=== PATIENT | male | born 1935 | race Caucasian/White ===

== ENCOUNTER 2019-01-20 16:32 | Emergency (ER) | payer MEDICARE, BC ==
[~2019-01-20] VITALS: Ht 177.8 cm; Wt 88.6 kg
[~2019-01-20 16:32] MED LIST: ACTONEL PO; ACTONEL5 MG PO; ADULT ASA81 MG OR; ANTIVERT OR; ASPIRIN LOW DOS81 M2 PO; AVODART0.5 MG PO; BACTRIM DS1 TAB OR; CIPRO500 MG OR; FLUARIX QUADRIV1 IN1 IM; FLUARIX QUADRIV1 INJ IM; FLUZONE SPLT1 M1 IM; INDOCIN50 MG/CAP PO; LEVOTHYROXIN50 MCG PO; LIPITOR80 MG PO; METO50TA52 PO; MILK OF MAG30 ML/UDC PO; NASONEX50 MCG/AC; NEXIUM40 MG PO; PLAVIX75 MG OR; PLAVIX75 MG PO; PROTONIX40 MG PO; SENOKOT8.6 MG PO; SYNTHROID25 MCG PO; TOPROL XL100 MG OR; UROXATRAL10 MG PO; VASOTEC5 MG PO; XANAX0.25 MG PO; ZETIA10 MG PO; ZOLPIDEM5 MG PO
[2019-01-20 17:56] LABS: HEMATOCRIT 36.7 % (39.0-50.0); HEMOGLOBIN 11.8 g/dl (14.0-18.0); IMMATURE GRANULOCYTES 0.6 % (0.0-5.0); MEAN CELL VOLUME 90.4 fL CALC (80.0-100.0); MEAN CORPUSCULAR HGB 29.1 pG CALC (26.0-32.0); MEAN CORPUSCULAR HGB CONC 32.2 g/L CALC (32.0-36.0); NEUT# 10.95 thou/uL (1.82-7.42); RED BLOOD COUNT 4.06 mill/uL (4.70-6.10); RED CELL DISTRI WIDTH 14.9 % (11.5-15.5)
[2019-01-20] MEDS ORDERED: ELIQUIS2.5 MG ×2 (18:04→18:05)
[2019-01-20 18:12] VITALS: BP 154/85
[2019-01-20 18:15] LABS: ALBUMIN 4.4 g/dL (3.2-5.0); ALKALINE PHOSPHATASE 83 u/l (38-126); ANION GAP 17 (6-22 (CALC)); BILIRUBIN, TOTAL 1.2 mg/dL (0.0-1.4); BUN 21 mg/dL (8-23); BUN/CREATININE RATIO 27 (12-20 (CALC)); CARBON DIOXIDE 25 mmol/l (22-30); CHLORIDE 99 mmol/l (95-108); CREATININE 0.8 mg/dL (0.7-1.3); GFR > 60 ML/MIN (>=60 (CALC)); GFR FOR AFR.AMER. > 60 ML/MIN (>=60 (CALC)); INTERNATIONAL NORMALIZED RATIO 1.1 RATIO (0.7-1.3); POTASSIUM 4.6 mmol/l (3.5-5.1); SGOT/AST 30 u/l (19-48); SODIUM 137 mmol/l (137-146); TOTAL PROTEIN 7.4 g/dL (6.3-8.2)
[2019-01-28] MEDS ORDERED: LUMIGAN0.01 % OU (15:10)
[2019-01-28] MEDS ORDERED: SEROQUEL100 MG PO (15:11)
[2019-03-01] MEDS ORDERED: TAMSULOSIN0.4 MG PO (14:55)
[2019-03-01] MEDS ORDERED: RISEDRONATE SO150 MG PO (14:55)
[2019-03-01] MEDS ORDERED: XANAX0.5 MG PO (14:58)
== END 2019-01-20 18:15 | disposition short-term general hospital (02) ==
LOC: ED 16:32
PROVIDERS: Emergency Medicine
DX: S06.340A Traumatic hemorrhage of right cerebrum without loss of consciousness, initial encounter (principal); S80.02XA Contusion of left knee, initial encounter; S80.01XA Contusion of right knee, initial encounter; I10 Essential (primary) hypertension; I25.10 Atherosclerotic heart disease of native coronary artery without angina pectoris; W18.30XA Fall on same level, unspecified, initial encounter; Y92.009 Unspecified place in unspecified non-institutional (private) residence as the place of occurrence of the external cause

== ENCOUNTER 2019-01-28 13:58 | Inpatient (IN) | payer MEDICARE, BC ==
[~2019-01-28] VITALS: Ht 30.5 cm; Wt 100.0 kg
[2019-01-28] VITALS (8 sets, daily range): BP systolic 114–179; BP diastolic 69–103
[~2019-01-28 13:58] MED LIST changes: +ELIQUIS2.5 MG
--- NOTE | 2019-01-28 14:09 | NUR ---
PT TO ROOM VIA EMS PT SENT TO ER FOR HTN FROM [facility]. PT IS AOX2 PER NORMAL MENTATION FROM . PT WAS RELEASED FROM [facility] 01/27/19 TO REHAB. PT DENIES ANY C/P, SOB, N/V.
--- NOTE | 2019-01-28 14:20 | NUR ---
SPLINT REMOVED FROM LEFT LEG, BRUSING NOTED OVER TIB/FIB, STATES INJURY WAS FROM A FALL.
[2019-01-28 14:30] LABS: HEMATOCRIT 37.5 % (39.0-50.0); HEMOGLOBIN 12.2 g/dl (14.0-18.0); IMMATURE GRANULOCYTES 0.9 % (0.0-5.0); MEAN CELL VOLUME 88.7 fL CALC (80.0-100.0); MEAN CORPUSCULAR HGB 28.8 pG CALC (26.0-32.0); MEAN CORPUSCULAR HGB CONC 32.5 g/L CALC (32.0-36.0); NEUT# 12.49 thou/uL (1.82-7.42); RED BLOOD COUNT 4.23 mill/uL (4.70-6.10); RED CELL DISTRI WIDTH 15.3 % (11.5-15.5)
[2019-01-28 14:31] LABS: URINE BILIRUBIN - DIPSTICK NEGATIVE (NEGATIVE); URINE BLOOD DIPSTICK LARGE (NEGATIVE); URINE COLOR YELLOW; URINE GLUCOSE - DIPSTICK 500 mg/dL (NEGATIVE); URINE KETONE 15 mg/dL (NEGATIVE); URINE LEUK ESTERASE NEGATIVE (NEGATIVE); URINE NITRITE - DIPSTICK NEGATIVE (Negative); URINE PH 5.5 (4.5-8.0); URINE PROTEIN - DIPSTICK 100 mg/dL (NEG-TRACE); URINE SPECIFIC GRAVITY >=1.030
[2019-01-28 14:38] LABS: URINE RBC 25-50 RBC/hpf (0-5); URINE SQUAMOUS EPITHELIAL CELL FEW EPI/hpf (0-FEW)
[2019-01-28 14:43] LABS: ANION GAP 16 (6-22 (CALC)); BUN 17 mg/dL (8-23); BUN/CREATININE RATIO 24 (12-20 (CALC)); CARBON DIOXIDE 27 mmol/l (22-30); CHLORIDE 90 mmol/l (95-108); CREATININE 0.7 mg/dL (0.7-1.3); GFR > 60 ML/MIN (>=60 (CALC)); GFR FOR AFR.AMER. > 60 ML/MIN (>=60 (CALC)); POTASSIUM 3.8 mmol/l (3.5-5.1)
[2019-01-28 14:44] LABS: SODIUM 129 mmol/l (137-146)
[2019-01-28] MEDS ORDERED: ALFUZOSIN HCL E10 MG PO (15:08)
[2019-01-28] MEDS ORDERED: ASPIRIN 81 LOW81 MG (15:08)
[2019-01-28] MEDS ORDERED: LEVOTHYROXIN25 MC1 PO (15:09)
[2019-01-28] MEDS ORDERED: AVODART0.5 MG PO (15:09)
[2019-01-28] MEDS ORDERED: ATORVASTATIN CA80 MG PO (15:09)
[2019-01-28] MEDS ORDERED: PROTONIX40 M2 PO (15:10)
[2019-01-28] MEDS ORDERED: LUMIGAN0.01 % OP (15:10)
[2019-01-28] MEDS ORDERED: SEROQUEL25 MG (15:11)
[2019-01-28] MEDS ORDERED: ZETIA10 MG PO (15:11)
[2019-01-28] MEDS ORDERED: VASOTEC5 MG PO (15:11)
[2019-01-28] MEDS ORDERED: ELIQUIS2.5 MG (15:12)
[2019-01-28] MEDS ORDERED: METOPROL TAR100 MG PO (15:13)
--- NOTE | 2019-01-28 15:20 | NUR ---
PT RESTING ON STRETCHER, IV'S PATENT WITGH MEDICATIONS RUNNING. AT BEDSIDE.
--- NOTE | 2019-01-28 15:57 | NUR ---
REPORT CALLED TO ICU- MORGAN NEVILLE ACCEPTED PT
--- NOTE | 2019-01-28 16:20 | NUR ---
PT ARRIVED VIA STRETCHER ACCOMAPNIED BY STAFF AT 1620 WITH IV SITES INTACT, GUTIERREZ AND O2 @2 LITERS WITH NC. CONTINUE TO OBSERVE AND MONITOR.
--- NOTE | 2019-01-28 16:20 | NUR ---
received from ER; cardizem gtt infusing at 20mg/hr to lac site; dose continued;
--- NOTE | 2019-01-28 16:20 | NUR ---
Admission Note Report Given to: MORGAN KELIN Transported by: Wheelchair X Stretcher Transported with: X Nurse Transporter X Patent IV O2 X Luggage Repairer TRANSPORTED TO ICU 5 WITHOUT INCIDENT
--- NOTE | 2019-01-28 16:40 | NUR ---
ASSESSMENT IS COMPLETED: IV SITE IS FREE FROM REDNESS OR EDEMA. HR IS IRREGULAR, BREATH SOUNDS ARE CLEAR,BILATERALLY., GUTIERREZ INTACT DRAINING YELLOW URINE,. PULSES ARE STRONG X4, ABD IS SOFT WITH ACTIVE BS. DRESSING ON LEFT FOOT IS COVERED WITH CELENA WRAP. CONTINUE TO OSBERVE AND MONITOR.
--- NOTE | 2019-01-28 16:41 | NUR ---
call received from Dr Jonas NICHOLSON informed per publicity writer pt is Afib rate 124, bp 154/103, cardizem gtt at 20mg/hr; orders to be placed
--- NOTE | 2019-01-28 19:50 | NUR ---
PATIENT ALERT AND ORIENTED WITH GOOD BREATHING PATTERN, STABLE VITAL SINGS AT THE MOMENT OF THIS NOTE.HEART RATE A. FIB, LUNGS CLEARS. SKIN IS INTACT, BRUSING IN THE LEFT AND RIGHT HIP. CONFORT IS PROVIDED. CHANGE OF POSITION TO PREVENTAREAS OF PRESSURE.
[2019-01-29] VITALS (19 sets, daily range): BP systolic 101–153; BP diastolic 55–98
--- NOTE | 2019-01-29 07:20 | NUR ---
ASSESSMENT IS COMPLETED: IV SITE IN RAC IS CDI. GUTIERREZ INTACT DRAINING YELLOW URINE. HR IS IRREGULAR, BREATH SOUNDS ARE CLEAR,BILATERALLY, NO C/O SOB, ABD IS SOFT WITH ACTIVE BS. CALL MASON WITHIN REACH. REDIRECTABLE. CONTINUE TO OBSERVE AND MONITOR.
--- NOTE | 2019-01-29 07:28 | NUR ---
Vancomycin consult Age: 83 yo Serum creatinine: 1 mg/dL Height: 70.0 Inches Weight (kg): 99.98 IBW (kg): 73.00 Dosing wt(kg): 99.98 Estimated Creatinine clearance (ml/min): 56.8 CRCL method: Cockcroft and Gault using ibw(default). Vd (liters): 70.0 (factor used: 0.7 L/kg) Arturo (hr-1): 0.052 Half life (hrs): 13.33 Vancomycin 1000 mg q 12 hrs with an expected Cpeak of 29 mcg/ml and an expected Ctrough of 17 mcg/ml
--- NOTE | 2019-01-29 07:45 | NUR ---
IV SITE PLACED IN LH WITH 1 ATTEMPT BY Lyn GUPTA RN. PT TOLERATED WELL. COVERED WITH COBAN TO KEEP PT FROM PULLING OUT. CONTINUE TO OSBERVE AND MONITOR.
--- NOTE | 2019-01-29 08:43 | NUR ---
SPOUSE IN THE ROOM. IS CONFUSED AT TIMES. TALKING ABOUT GETTING DRESSED AND GOING HOME/ ALSO ABOUT TRUMP ON TV.
[2019-01-29 09:13] LABS: HEMATOCRIT 35.6 % (39.0-50.0); HEMOGLOBIN 11.5 g/dl (14.0-18.0); IMMATURE GRANULOCYTES 1.1 % (0.0-5.0); MEAN CORPUSCULAR HGB 28.8 pG CALC (26.0-32.0); MEAN CORPUSCULAR HGB CONC 32.3 g/L CALC (32.0-36.0); NEUT# 10.57 thou/uL (1.82-7.42); RED CELL DISTRI WIDTH 15.4 % (11.5-15.5)
[2019-01-29 09:25] LABS: ANION GAP 17 (6-22 (CALC)); BUN 13 mg/dL (8-23); BUN/CREATININE RATIO 23 (12-20 (CALC)); CARBON DIOXIDE 21 mmol/l (22-30); CHLORIDE 96 mmol/l (95-108); CREATININE 0.6 mg/dL (0.7-1.3); GFR > 60 ML/MIN (>=60 (CALC)); GFR FOR AFR.AMER. > 60 ML/MIN (>=60 (CALC)); MAGNESIUM 1.8 mg/dL (1.6-2.3); POTASSIUM 3.7 mmol/l (3.5-5.1); SODIUM 130 mmol/l (137-146)
--- NOTE | 2019-01-29 11:23 | NUR ---
PT IS RELAXING AND VISITING WITH FAMILY. ATTEMPTS TO GET OUT OF BED REDIRECTABLE WITH STAFF. CONTINUE TO OSEBRVE AND MONITOR
--- NOTE | 2019-01-29 12:30 | NUR ---
RAC IV STARTED TO LEAK ON PT AND BED. REMOVED. COMPLETED THE VANCO IN OTHER IV SITE . IV SITE IN IS CDI. FAMILY IN THE ROOM. CONTINUE TO OBSERVE AND MONITOR.
--- NOTE | 2019-01-29 12:47 | NUR ---
EKG COMPLETED AT BEDSIDE, DR. ROMERO IN THE UNIT.
--- NOTE | 2019-01-29 12:56 | NUR ---
WRIST RESTRAINT ORDERS PLACED DUE TO PT PULLING IVS, AND GUTIERREZ CATHETER, ALSO CARDIAC MONITORING , BP CUFF. AND ALL CLOTHING. REDIRECTABLE, BUT FOR SAFETY.CONTINUE TO OSBERVE AND MONITOR.
--- NOTE | 2019-01-29 15:29 | NUR ---
FAMILY MEMBER INQUIRED ABOUT A CT SCAN OF THE HEAD. CALLED VIKRAM TIPTON. WANTS TO WAIT UNTIL WE GET RECORDS FROM [facility]. THEN WILL DECIDE.
--- NOTE | 2019-01-29 16:30 | NUR ---
SPOKE WITH SPOUSE AT 1615 INQUIRED HOW HE IS , EXPLAINED HE IS RESTIGN A LITTLE BIT. VERBALIZED UNDERSTANDING.
--- NOTE | 2019-01-29 17:12 | NUR ---
PT HAS TAKEN ONE MITTEN OFF OF THE R HAND WILL CONTINUE TO OBSERVE AND MONITOR.
--- NOTE | 2019-01-29 18:19 | NUR ---
PT PASSED A LARGE CLOT THROUGH HIS GUTIERREZ. OTHERWISE CLEAR URINE.
--- NOTE | 2019-01-29 18:43 | NUR ---
GAVE REPORT TO AGENCY NURSE. IV SITE IS FREE FROM REDNESS OR EDEMA. GUTIERREZ INTACT. CONTINUE TO OBSERVE AND MONITOR.
--- NOTE | 2019-01-29 20:05 | NUR ---
PATIENT ALERT AND CONFUSE IN TIME AND PLACE. GOOD BREATHING PATTERN, HEART RATE A. FIB AT THIS TIME. GASTROINTESTINAL MOVEMENT PRESENT. SKIN IS INTACT. THE COMFORT OF EDUCATION IS PROVIDE.
[2019-01-30] VITALS (30 sets, daily range): BP systolic 118–199; BP diastolic 74–109
[2019-01-30 05:09] LABS: HEMOGLOBIN 11.4 g/dl (14.0-18.0); MEAN CELL VOLUME 89.5 fL CALC (80.0-100.0); MEAN CORPUSCULAR HGB 29.2 pG CALC (26.0-32.0); MEAN CORPUSCULAR HGB CONC 32.6 g/L CALC (32.0-36.0); NEUT# 9.56 thou/uL (1.82-7.42); RED BLOOD COUNT 3.91 mill/uL (4.70-6.10); RED CELL DISTRI WIDTH 15.5 % (11.5-15.5)
[2019-01-30 05:34] LABS: BUN 9 mg/dL (8-23); BUN/CREATININE RATIO 15 (12-20 (CALC)); CHLORIDE 103 mmol/l (95-108); CREATININE 0.6 mg/dL (0.7-1.3); GFR > 60 ML/MIN (>=60 (CALC)); GFR FOR AFR.AMER. > 60 ML/MIN (>=60 (CALC)); POTASSIUM 3.3 mmol/l (3.5-5.1)
[2019-01-30 05:38] LABS: ANION GAP 10 (6-22 (CALC))
[2019-01-30 05:39] LABS: CARBON DIOXIDE 29 mmol/l (22-30); SODIUM 139 mmol/l (137-146)
--- NOTE | 2019-01-30 07:35 | NUR ---
ASSESSMENT IS COMPLTED: IV SITE IS FREE FROM REDNESS OR EDEMA. HR IS IRREGULAR, PULSES ARE STRONG X4, ABD IS SOFT WITH ACTIVE BS. HAD A BM THIS AM. BREATH SOUNDS ARE CLEAR, BILATERALLY,. O2 @ 2LITERS WITH NC. GUTIERREZ INTACT DRAINING BLOODY URINE. DRESSING ON LEFT ANKLE IS CDI. BRUISING NOTED ON FOOT. CONTINUE TO OSBERVE AND MONITOR.
--- NOTE | 2019-01-30 09:06 | NUR ---
gave an update to evette dykes at &r. pt is up in the chair with 2 person assist unable to bear weight on left foot.
--- NOTE | 2019-01-30 10:00 | NUR ---
PT IS SITTING IN THE CHAIR, CONTINUES TO FEEL LIKE HE HAS TO VOID, REDIRECTABLE RE: MATT
--- NOTE | 2019-01-30 10:37 | NUR ---
Vancomycin consult Current dose being given: 1000 mg Current dosing interval: 12 hrs Current infusion time (hrs): 2 Trough level obtained: 8 mcg/ml Timing of trough - # of hrs before next dose: 0.5 Hrs Estimated PK Parameters: New rate constant (zunilda): 0.089 hr-1 Half-life: 7.79 Hours Vd from levels: 70.00 Liters (0.7 L/kg) Vancomycin 1000 mg q 8 hrs. Infuse over 2 hrs Expected Cpeak: 26 mcg/mL Expected Ctrough: 15 mcg/mL
--- NOTE | 2019-01-30 11:51 | NUR ---
DR. LOPEZ , PHYSICAL THERAPY HERE TO SEE THE PT. HE IS SITTING IN THE CHAIR FAMILY IN THE ROOM.
--- NOTE | 2019-01-30 13:00 | NUR ---
EZRA RAMIRES CAME OFF FOR LUNCH, HAS NOT PLACED BACK ON. RELAXING AT THIS TIME. CONTINUE TO OSBERVE AND MONITOR.
--- NOTE | 2019-01-30 14:40 | NUR ---
PT PLACED ON STRETCHER FOR A CT OF THE THORAX. IV SITE INTACT WITH FLUIDS. ALS CARDIZEM DRIP. GUTIERREZ INTACT. CONTINUE TO OBSERVE AND MONITOR.
--- NOTE | 2019-01-30 15:15 | NUR ---
PT RETURNED FROM HAVING CT COMPLETED; PT IS LAYING ON HIS R SIDE. VERY COMFORTABLE. IV SITE IS FREE FROM REDNESS OR EDEMA. GUTIERREZ INTACT. CONTINUE TO OSBERVE AND MONITOR.
--- NOTE | 2019-01-30 16:00 | NUR ---
PT IS RESTING IN BED WITH NO DISTRESS NOTED. IV SITE IS FREE FROM REDNESS OR EDEMA. GUTIERREZ INTACT. CONTINUE TO OBSERVE AND MONITOR.
--- NOTE | 2019-01-30 16:41 | NUR ---
RECEIVED A CALL FROM DR.ALTAJAR SIMONA BERG AND YANA.
--- NOTE | 2019-01-30 18:50 | NUR ---
REPORT FROM Morgan PATRICK LPN. ASSUMED PT. CARE.
--- NOTE | 2019-01-30 19:30 | NUR ---
PT. FOUND RESTING ON LT. SIDE IN NO DISTRESS. SPO2 IS SLIGHTLY LOW AT 91% ON 2L VIA NC. CARDIZEM DRIP INFUSING AT 20 MG/HR AT THIS TIME. HR REMAINS A-FIB IN THE 100-160'S. BP STABLE AT 164/82. AFEBRILE AT 99.9 AT THIS TIME.
--- NOTE | 2019-01-30 20:46 | NUR ---
PT. BRENDA NOW 197. WILL MEDICATE ORDERED.
--- NOTE | 2019-01-30 21:05 | NUR ---
PT. HIGHLY RESTLESS. ORIENTED X 0 AT THIS TIME. PT. ASKED HIS NAME AND ONLY STATES, "I DON'T KNOW". NOT FOLLOWING COMMANDS. PULLING AT LINES AND TUBE. REORIENTATION PROVIDED, BUT UNSUCCESSFUL AT THIS TIME.
--- NOTE | 2019-01-30 21:55 | NUR ---
MD MADE AWARE OF PATIENT BEHAVIOR AT THIS TIME. REMAINS ORIENTED X 0. AGAIN ATTEMPTS TO REORIENT UNSUCCESSFUL.
--- NOTE | 2019-01-30 22:00 | NUR ---
PT. PLACED IN SOFT BILAT WRIST RESTRAINTS AT THIS TIME. CONTINUES TO ATTEMPT TO PULL AT LINES AND TUBES DESPIDE MULTIPLE ATTEMPTS TO REORIENTED AND CALM PATIENT.
--- NOTE | 2019-01-30 22:01 | NUR ---
THIS RN AND KESHIA KHALIL, CHANGED PT. GOWN AND PROVIDED PERICARE. DRIED STOOL NOTED TO PATIENT AND GOWN. LINENS CHANGED AT THIS TIME WELL. PT. REMAINS UNCOOPERATIVE WITH CARE.
--- NOTE | 2019-01-30 22:49 | NUR ---
RT AT BEDSIDE. PT. PLACED ON VENTI-MASK PT. IS MOUTH BREATHING AND SPO2 IS 84% ON 3L NC. WILL CONTINUE TO CLOSELY MONITOR.
--- NOTE | 2019-01-30 23:48 | NUR ---
PT. REMAINS RESTRAINED. SLIGHT IMPROVEMENT IN AGGITATION AT THIS TIME. PT. NOW ON 50% VENTI-MASK AT THIS TIME AND SPO2 IS 91%. HR HAS IMPROVED AND REMAINS IN A-FIB WITH RATE IN THE 80-100'S ON 20 MG/HR CARDIZEM DRIP. IV FLUIDS REMAIN AT KVO. NO REACTIONS NOTED TO INFUSING ZOSYN.
[2019-01-31] VITALS (47 sets, daily range): BP systolic 111–182; BP diastolic 71–112
--- NOTE | 2019-01-31 00:18 | NUR ---
IV ABX INFUSED. NO REACTIONS NOTED. IV LINE REMAINS PATENT. FLUSHED.
--- NOTE | 2019-01-31 01:23 | NUR ---
PT. SLEEPING AT THIS TIME, BUT REMAINS RESTLESS. TACHYPENIC, CONTINUES ON CARDIZEM DRIP AT 20 MG/HR. HR IN THE 90-110'S IN A-FIB. WILL CONTINUE TO MONITOR.
--- NOTE | 2019-01-31 02:34 | NUR ---
VANCO INFUSING WITHOUT SIGNS OF INFILTRATION OR REACTIONS. REMAINS RESTRAINED AT THIS TIME PT. REMAINS INTERMITTENTLY AGGITATED. REMAINS ORIENTED X 0.
--- NOTE | 2019-01-31 04:20 | NUR ---
VANCO COMPLETE AT THIS TIME. NO REACTIONS NOTED. PT. REMAINS ORIENTED X 0. PT. REMAINS A-FIB WITH RATE IN THE 80-110'S. CARDIZEM DRIP CONTINUES AT 20 MG/HR. RESTRAINTS REMAIN IN PLACE PT. CONTINUES TO ATTEMPT TO PULL AT LINES/TUBES. CALL LIGHT REMAINS WITHIN REACH. WILL CONTINUE TO MONITOR.
[2019-01-31 05:39] LABS: HEMOGLOBIN 11.1 g/dl (14.0-18.0); IMMATURE GRANULOCYTES 1.2 % (0.0-5.0); MEAN CELL VOLUME 91.6 fL CALC (80.0-100.0); MEAN CORPUSCULAR HGB 29.1 pG CALC (26.0-32.0); MEAN CORPUSCULAR HGB CONC 31.7 g/L CALC (32.0-36.0); NEUT# 15.93 thou/uL (1.82-7.42); RED BLOOD COUNT 3.82 mill/uL (4.70-6.10); RED CELL DISTRI WIDTH 15.9 % (11.5-15.5)
[2019-01-31 05:42] LABS: ALKALINE PHOSPHATASE 80 u/l (38-126); AMYLASE 36 u/l (30-110); BILIRUBIN, TOTAL 1.1 mg/dL (0.0-1.4); BUN 17 mg/dL (8-23); BUN/CREATININE RATIO 27 (12-20 (CALC)); CARBON DIOXIDE 25 mmol/l (22-30); CHLORIDE 103 mmol/l (95-108); CREATININE 0.6 mg/dL (0.7-1.3); GFR > 60 ML/MIN (>=60 (CALC)); GFR FOR AFR.AMER. > 60 ML/MIN (>=60 (CALC)); LIPASE 74 u/l (23-300); MAGNESIUM 1.9 mg/dL (1.6-2.3); SGOT/AST 35 u/l (19-48); SODIUM 139 mmol/l (137-146); TOTAL PROTEIN 6.8 g/dL (6.3-8.2)
--- NOTE | 2019-01-31 05:45 | NUR ---
WHEN ATTEMPTING TO WAKE PATIENT UP, PT. FOUND TO BE OBTUNDED. UNABLE TO FOLLOW COMMANDS TO TAKE PILLS. MADE AWARE. NEW ORDERS RECEIVED FOR STAT ABG AND CT BRAIN. WILL COMPLETE KIN.
[2019-01-31 05:50] LABS: ALBUMIN 3.5 g/dL (3.2-5.0); ANION GAP 15 (6-22 (CALC)); POTASSIUM 4.2 mmol/l (3.5-5.1)
--- NOTE | 2019-01-31 07:34 | NUR ---
01/30/19 Attempted evaluation in PM . Patient had received ativan and was difficult to arouse. We will attempt again in AM
--- NOTE | 2019-01-31 07:40 | NUR ---
ASSESSMENT IS COMPLETED: IV SITE IS FREE FROM REDNESS OR EDEMA.HR IS IRREGULAR, BREATH SOUNDS ARE CLEAR AND CRACKLES. O2 ON A NONREBREATHER. PULSES ARE STRONG X4, DRESSING ON LEFT ANKLE IS CDI. GUTIERREZ INTACT. RESTRAINTS IN USE DUE TO PT PULLING ON CARDIAC, AND IV SITES. CONTINUE TO OSBERVE AND MONITOR.
--- NOTE | 2019-01-31 09:40 | NUR ---
DR LOPEZ CONTACTED RE: PTS BREATHING.
--- NOTE | 2019-01-31 09:45 | NUR ---
LEFT PHONE AT NURSES STATION TO CHARGE.
--- NOTE | 2019-01-31 10:00 | NUR ---
FAMILY IN THE ROOM/ DR. LOPEZ IN TO VISIT WITH PT AND FAMILY. INFORMED THAT HE NEEDS TO BE TRANSFERRED TO [facility] FOR FURTHER TESTING.
--- NOTE | 2019-01-31 10:48 | NUR ---
PER DR LOPEZ, [facility] WILL NOT HAVE A BED UNTIL MAYBE TOMORROW AM. DR DONALD CALLED UP FROM ER BY DR LOPEZ FOR INTUBATION. 20MG ETOMIDATE GIVEN AT 1047 BY JOHN. 100MG ROCORRONIUM GIVEN AT [address] LOPEZ. PT INTUBATED IWTH 7.[address] DONALD AT 1048; 21 @ LIP. PLACEMENT VERIFIED BY COLOR CHANGE & AUSCULATION AT 1049. 1056 18FR OG PLACED. 1102 RIJ 3X LUMEN PLACED BY DR DONALD. 1110 PORT CXR COMPLETED.
--- NOTE | 2019-01-31 11:06 | NUR ---
DR LOPEZ WORKING ON TRANSFER TO [facility]. DR REDMOND (RECHECKER) ACCEPTED PT AT 1106. DR LOPEZ WOULD LIKE PT TO FLY TO [facility] WHEN ROOM ASSIGNMENT GIVEN.
--- NOTE | 2019-01-31 11:36 | NUR ---
PROPOFOL FORM FOR VENTALATED PTS FAXED TO PHARMACY
--- NOTE | 2019-01-31 12:00 | NUR ---
PT IS RELAXING WITH VENTILATOR IN PLACE. IV SITE IS FREE FROM REDNESS OR EDEMA. CONTINUE TO OSBERVE AND MONITOR.
--- NOTE | 2019-01-31 12:40 | NUR ---
S: REMBERTO GARCIA P is a 83 M who presents with suspected healthcare associated pneumonia, metabolic encephalopathy, hypertension, and hyponatremia . He has a history of dementia, arthritis, CAD, hypertension, osteoporosis, and dyslipidemia. All medications in patient's chart were reviewed. O: VS: BP 139/72 mmHg, P 106bpm, RR 32, T 98.7 W 99.99 kg, HT 70 in, Scr= 0.6 ,CrCl= 65.17 ml/min A: Blood culture is pending P: Patient is on Zosyn 3.375gm IV Q6H and Vancomycin 1gm Q8H. Vancomycin ordered for pharmacy to dose. Continue Vancomycin 1gm IV Q8H. Vancomycin trough is drawn before the 4th dose on 02/01/19 @0930. Vancomycin goal trough is between 15-20 mcg/ml. Pharmacy will follow and or advise on antibiotics use as needed.
--- NOTE | 2019-01-31 13:00 | NUR ---
SON @BEDSIDE WITH PT. UPDATED ON STATUS.
--- NOTE | 2019-01-31 13:37 | NUR ---
PROPOFOL DRIP TITRATED UP TO 30 MCG/KG/MIN D/T PT MOVING ALL LIMBS & SCOOTING CLOSE TO SIDE OF BED.
--- NOTE | 2019-01-31 13:38 | NUR ---
RECVD REPORT FROM KELIN MORA
--- NOTE | 2019-01-31 13:40 | NUR ---
PT GOT BED 5D, BED 4. AEROMED ETA 21 MINS.
--- NOTE | 2019-01-31 13:42 | NUR ---
SPOKE WITH CHON PT'S RE: PT BEING FLOWN OUT IN APPROX 19 MINUTES. VERBALIZED UNDERSTANDING. VERY APPRECIATIVE OF THE CARE HE HAS RECIEVED.
--- NOTE | 2019-01-31 13:50 | NUR ---
FACESHEET FAXED TO [facility] AT [phone]
--- NOTE | 2019-01-31 14:00 | NUR ---
RT @BEDSIDE FOR ABG. PT STILL MOVING AROUND. PROPOFOL TITRATED TO 35 MCG/KG/MIN
--- NOTE | 2019-01-31 14:53 | NUR ---
PT OUT THE DOOR WITH AEROMED IN STABLE CONDITION ON TELE, VENT, & IV DRIPS.
--- NOTE | 2019-01-31 15:04 | NUR ---
report given to adam at [facility] icu. [phone]
== END 2019-01-31 14:53 | disposition short-term general hospital (02) | DRG 208 ==
LOC: ED 13:58 → ED-I 14:50 → ED 15:03 → ICU 15:04
PROVIDERS: Family Medicine; Internal Medicine Nephrology; Nurse Practitioner Family; ADMIT Internal Medicine; ATTEND Internal Medicine
PROC: 5A1935Z Respiratory Ventilation, Less than 24 Consecutive Hours (ICD-10-PCS; principal; 2019-01-31)
PROC: 0BH17EZ Insertion of Endotracheal Airway into Trachea, Via Natural or Artificial Opening (ICD-10-PCS; 2019-01-31)
PROC: 02HV33Z Insertion of Infusion Device into Superior Vena Cava, Percutaneous Approach (ICD-10-PCS; 2019-01-31)
DX: J18.9 Pneumonia, unspecified organism (principal); G93.41 Metabolic encephalopathy; J96.02 Acute respiratory failure with hypercapnia; J96.01 Acute respiratory failure with hypoxia; G93.6 Cerebral edema; E87.1 Hypo-osmolality and hyponatremia; I48.1 Persistent atrial fibrillation; I10 Essential (primary) hypertension; I16.0 Hypertensive urgency; I25.10 Atherosclerotic heart disease of native coronary artery without angina pectoris; E11.9 Type 2 diabetes mellitus without complications; F03.90 Unspecified dementia, unspecified severity, without behavioral disturbance, psychotic disturbance, mood disturbance, and anxiety; M19.90 Unspecified osteoarthritis, unspecified site; M81.0 Age-related osteoporosis without current pathological fracture; E78.5 Hyperlipidemia, unspecified; E87.6 Hypokalemia; E03.9 Hypothyroidism, unspecified; K21.9 Gastro-esophageal reflux disease without esophagitis; R33.9 Retention of urine, unspecified; I25.2 Old myocardial infarction; S82.832D Other fracture of upper and lower end of left fibula, subsequent encounter for closed fracture with routine healing; X58.XXXD Exposure to other specified factors, subsequent encounter; Y95 Nosocomial condition; Z79.82 Long term (current) use of aspirin; Z86.73 Personal history of transient ischemic attack (TIA), and cerebral infarction without residual deficits; Z79.01 Long term (current) use of anticoagulants; Z95.5 Presence of coronary angioplasty implant and graft; Z95.1 Presence of aortocoronary bypass graft
CPT/HCPCS: J2060

== ENCOUNTER 2019-03-08 11:13 | Day surgery (SDC) | payer MEDICARE, BC ==
[~2019-03-08 11:13] MED LIST changes: +ALFUZOSIN HCL E10 MG PO; +ASPIRIN 81 LOW81 MG; +ATORVASTATIN CA80 MG PO; +LEVOTHYROXIN25 MC1 PO; +LUMIGAN0.01 % OU; +METOPROL TAR100 MG PO; +PROTONIX40 M2 PO; +RISEDRONATE SO150 MG PO; +SEROQUEL100 MG PO; +TAMSULOSIN0.4 MG PO; +XANAX0.5 MG PO
[2019-03-08 15:40] VITALS: BP 131/101
== END 2019-03-08 15:30 ==
LOC: ORM 11:13
PROVIDERS: ATTEND Urology
PROC: 0V508ZZ Destruction of Prostate, Via Natural or Artificial Opening Endoscopic (ICD-10-PCS; principal; 2019-03-08)
DX: N40.1 Benign prostatic hyperplasia with lower urinary tract symptoms (principal); N13.8 Other obstructive and reflux uropathy; R33.8 Other retention of urine; E11.9 Type 2 diabetes mellitus without complications; I11.0 Hypertensive heart disease with heart failure; I50.9 Heart failure, unspecified; I48.91 Unspecified atrial fibrillation; F03.90 Unspecified dementia, unspecified severity, without behavioral disturbance, psychotic disturbance, mood disturbance, and anxiety

== ENCOUNTER 2019-04-04 11:58 | Observation (INO) | payer MEDICARE, BC ==
[~2019-04-04] VITALS: Ht 177.8 cm; Wt 60.6 kg
[2019-04-04] MEDS ORDERED: DEPAKOTE500 MG PO (12:36)
[2019-04-04 12:39] LABS: IMMATURE GRANULOCYTES 0.8 % (0.0-5.0); MEAN CELL VOLUME 94.6 fL CALC (80.0-100.0); MEAN CORPUSCULAR HGB 28.1 pG CALC (26.0-32.0); MEAN CORPUSCULAR HGB CONC 29.7 g/L CALC (32.0-36.0); NEUT# 6.97 thou/uL (1.82-7.42); RED BLOOD COUNT 3.91 mill/uL (4.70-6.10); RED CELL DISTRI WIDTH 16.5 % (11.5-15.5)
[2019-04-04] MEDS ORDERED: GEODON20 MG PO (12:39)
[2019-04-04] MEDS ORDERED: LASIX 20 MG TAB20 MG PO (12:41)
[2019-04-04] MEDS ORDERED: MYLANT3 PO (12:48)
[2019-04-04 12:49] LABS: INTERNATIONAL NORMALIZED RATIO 1.2 RATIO (0.7-1.3); PROTHROMBIN TIME 12.7 SECONDS (9.0-12.5)
[2019-04-04] MEDS ORDERED: ZOFRAN ODT4 MG PO (12:49)
[2019-04-04] MEDS ORDERED: GEODON20 M1 IM (12:50)
[2019-04-04] MEDS ORDERED: MILK OF MAG30 ML/UDC PO (12:50)
[2019-04-04] MEDS ORDERED: EQ PAIN RELIEV325 MG PO (12:52)
[2019-04-04 12:54] LABS: ALBUMIN 3.5 g/dL (3.2-5.0); ALKALINE PHOSPHATASE 76 u/l (38-126); ANION GAP 11 (6-22 (CALC)); BILIRUBIN, TOTAL 0.6 mg/dL (0.0-1.4); BUN 20 mg/dL (8-23); BUN/CREATININE RATIO 23 (12-20 (CALC)); CARBON DIOXIDE 32 mmol/l (22-30); CHLORIDE 101 mmol/l (95-108); CREATININE 0.9 mg/dL (0.7-1.3); GFR > 60 ML/MIN (>=60 (CALC)); GFR FOR AFR.AMER. > 60 ML/MIN (>=60 (CALC)); LIPASE 42 u/l (23-300); POTASSIUM 4.2 mmol/l (3.5-5.1); SGOT/AST 24 u/l (19-48); SODIUM 140 mmol/l (137-146); TOTAL PROTEIN 6.7 g/dL (6.3-8.2)
[2019-04-04] MEDS ORDERED: HUMALOG100 UNIT/M SC (12:55)
[2019-04-04 13:01] LABS: URINE BILIRUBIN - DIPSTICK NEGATIVE (NEGATIVE); URINE BLOOD DIPSTICK LARGE (NEGATIVE); URINE GLUCOSE - DIPSTICK NEGATIVE (NEGATIVE); URINE KETONE NEGATIVE (NEGATIVE); URINE NITRITE - DIPSTICK NEGATIVE (Negative); URINE PH 5.5 (4.5-8.0); URINE PROTEIN - DIPSTICK 100 mg/dL (NEG-TRACE); URINE SPECIFIC GRAVITY >=1.030; URINE UROBILINOGEN - DIPSTICK 0.2 E.U./dL (0.2)
[2019-04-04 13:12] LABS: URINE COLOR DK. YELLOW; URINE LEUK ESTERASE SMALL (NEGATIVE)
[2019-04-04 13:13] LABS: URINE BACTERIA FEW hpf; URINE EPITHELIAL CELLS MODERATE EPI/hpf (0-FEW)
[2019-04-04 14:55] VITALS: BP 121/86
[2019-04-04 19:00] VITALS: BP 138/77
[2019-04-04 20:05] VITALS: BP 135/69
[2019-04-04 21:52] VITALS: BP 131/84
[2019-04-05 00:40] VITALS: BP 138/86
[2019-04-05 04:37] VITALS: BP 116/68
[2019-04-05 09:23] VITALS: BP 129/78
== END 2019-04-05 12:42 | disposition hospice, inpatient (51) ==
LOC: ED 11:58 → ED-I 13:02 → ED 13:16 → MS2 13:17
PROVIDERS: Family Medicine; ADMIT Internal Medicine Nephrology; ATTEND Internal Medicine Nephrology
DX: J18.9 Pneumonia, unspecified organism (principal); G93.41 Metabolic encephalopathy; J96.02 Acute respiratory failure with hypercapnia; J96.01 Acute respiratory failure with hypoxia; I48.91 Unspecified atrial fibrillation; I10 Essential (primary) hypertension; I25.10 Atherosclerotic heart disease of native coronary artery without angina pectoris; E11.9 Type 2 diabetes mellitus without complications; I69.198 Other sequelae of nontraumatic intracerebral hemorrhage; F01.50 Vascular dementia, unspecified severity, without behavioral disturbance, psychotic disturbance, mood disturbance, and anxiety; N40.0 Benign prostatic hyperplasia without lower urinary tract symptoms; S82.92XD Unspecified fracture of left lower leg, subsequent encounter for closed fracture with routine healing; X58.XXXD Exposure to other specified factors, subsequent encounter; M19.90 Unspecified osteoarthritis, unspecified site; E89.0 Postprocedural hypothyroidism; R62.7 Adult failure to thrive; Z51.5 Encounter for palliative care; Z68.1 Body mass index [BMI] 19.9 or less, adult; Z95.1 Presence of aortocoronary bypass graft; Z95.5 Presence of coronary angioplasty implant and graft; Z87.01 Personal history of pneumonia (recurrent); R53.1 Weakness; R41.82 Altered mental status, unspecified